=== PATIENT | female | born 1955 | race American Indian/Alaskan Native ===

== ENCOUNTER 2017-04-02 10:37 | Emergency (ER) | payer MEDICAID ==
[2017-04-02 12:05] LABS: Basophils % (Auto) 0.3 % (0.0-1.8); Eosinophils % (Auto) 0.1 % (0.0-4.3); Hematocrit 39.1 % (30.3-42.9); Hemoglobin 12.5 gm/dl (10.1-14.3); Mean Corpuscular HGB Conc 32 % (30-34); Mean Corpuscular Hemoglobin 30 pg (28-32); Mean Corpuscular Volume 94 fl (79-97); Platelet Count 175 K/mm3 (140-440); Red Blood Count 4.15 M/mm3 (3.65-5.03); Red Cell Distribution Width 14.4 % (13.2-15.2); White Blood Count 7.3 K/mm3 (4.5-11.0)
[2017-04-02 12:29] LABS: Anion Gap 19 mmol/L; BUN/Creatinine Ratio 24.28; Blood Urea Nitrogen 17 mg/dL (7-17); Calcium 9.5 mg/dL (8.4-10.2); Carbon Dioxide 22 mmol/L (22-30); Chloride 99.8 mmol/L (98-107); Glucose 114 mg/dL (65-100); Potassium 4.2 mmol/L (3.6-5.0); Sodium 137 mmol/L (137-145)
[2017-04-02 13:30] LABS: Urine Drugs of Abuse Note Disclamer
[2017-04-02 13:53] LABS: Bilirubin,Urine NEG (Negative); Blood,Urine NEG (Negative); Ketones,Urine NEG (Negative); Leukocyte Esterase,Urine LG (Negative); Mucus,Urine FEW /HPF; Nitrite,Urine NEG (Negative); Protein,Urine <15 mg/dL mg/dL (Negative); Urobilinogen,Urine < 2.0 mg/dL (<2.0)
--- NOTE | 2017-04-02 14:13 | Emergency Department Report ---
ED Psych HPI - General Chief Complaint: Psych Stated Complaint: PSYCH EVAL Time Seen by Provider: 04/02/17 13:01 Source: patient Mode of arrival: Ambulatory - History of Present Illness Initial Comments: 61-year-old female brought in by daughter with question of psychosis. According to the patient the daughter states that she is talking to herself. The patient states she does occasionally talk herself but this is her normal type behavior. She denies suicidal ideation and homicidal ideation. She states she has a follow-up appointment with her psychiatrist on Monday. MD Complaint: altered mental status History of same: No Quality: constant Improves With: none Worsens With: none Associated Symptoms: denies other symptoms Treatments Prior to Arrival: none - Related Data Home Medications Medication Instructions Recorded Confirmed Last Taken Amitriptyline [Elavil] 02/20/14 02/20/14 Unknown Baclofen [Lioresal] 02/20/14 02/20/14 Unknown Dextroamphetamine/Amphetamine 02/20/14 02/20/14 Unknown [Adderall XR 20 mg] HYDROcodone/APAP 10-325 [[place] 02/20/14 02/20/14 Unknown 10/325 mg] Previous Rx's Medication Instructions Recorded Last Taken Type Acetaminophen/Codeine [Tylenol 1 tab PO Q6H PRN #15 tab 02/20/14 Unknown Rx /Codeine # 3 tab] Naproxen Sodium (Nf) [Anaprox DS 550 mg PO BID PRN #14 tablet 02/20/14 Unknown Rx TAB] Amoxicillin/K Clav Tab [Augmentin 1 tab PO Q12HR #6 tab 04/02/17 Unknown Rx 875 mg] Allergies Allergy/AdvReac Type Severity Reaction Status Date / Time No Known Allergies Allergy Unverified 02/20/14 18:21 ED Review of Systems ROS: Stated complaint: PSYCH EVAL Other details as noted in HPI Comment: All other systems reviewed and negative Constitutional: denies: chills, fever Eyes: denies: eye pain, eye discharge, vision change ENT: denies: ear pain, throat pain Respiratory: denies: cough, shortness of breath, wheezing Cardiovascular: denies: chest pain, palpitations Endocrine: no symptoms reported Gastrointestinal: denies: abdominal pain, nausea, diarrhea Genitourinary: denies: urgency, dysuria, discharge Musculoskeletal: denies: back pain, joint swelling, arthralgia Skin: denies: rash, lesions Neurological: denies: headache, weakness, paresthesias Psychiatric: depression. denies: anxiety, auditory hallucinations, visual hallucinations, homicidal thoughts, suicidal thoughts Hematological/Lymphatic: denies: easy bleeding, easy bruising ED Past Medical Hx - Past Medical History Hx Psychiatric Treatment: (depression, bipol) Additional medical history: MS, anemia, sickle trait, cervical radiculopathy, DDD, fibromylagia - Family History Family history: no significant - Social History Smoking Status: Never Smoker Substance Use Type: None - Medications Home Medications: Home Medications Medication Instructions Recorded Confirmed Last Taken Type Acetaminophen/Codeine [Tylenol 1 tab PO Q6H PRN #15 tab 02/20/14 Unknown Rx /Codeine # 3 tab] Amitriptyline [Elavil] 02/20/14 02/20/14 Unknown History Baclofen [Lioresal] 02/20/14 02/20/14 Unknown History Dextroamphetamine/Amphetamine 02/20/14 02/20/14 Unknown History [Adderall XR 20 mg] HYDROcodone/APAP 10-325 [[place] 02/20/14 02/20/14 Unknown History 10/325 mg] Naproxen Sodium (Nf) [Anaprox DS 550 mg PO BID PRN #14 tablet 02/20/14 Unknown Rx TAB] Amoxicillin/K Clav Tab [Augmentin 1 tab PO Q12HR #6 tab 04/02/17 Unknown Rx 875 mg] ED Physical Exam - General Limitations: No Limitations General appearance: alert, in no apparent distress - Head Head exam: Present: atraumatic, normocephalic - Eye Eye exam: Present: normal appearance - ENT ENT exam: Present: normal exam, normal orophraynx, mucous membranes moist - Neck Neck exam: Present: normal inspection - Respiratory Respiratory exam: Present: normal lung sounds bilaterally. Absent: respiratory distress - Cardiovascular Cardiovascular Exam: Present: regular rate, normal rhythm. Absent: systolic murmur, diastolic murmur, rubs, gallop - GI/Abdominal GI/Abdominal exam: Present: soft, normal bowel sounds - Extremities Exam Extremities exam: Present: normal inspection - Back Exam Back exam: Present: normal inspection - Neurological Exam Neurological exam: Present: alert, oriented X3 - Psychiatric Psychiatric exam: Present: normal affect, normal mood, agitated - Skin Skin exam: Present: warm, dry, intact, normal color. Absent: rash ED Course Vital Signs 04/02/17 04/02/17 11:40 13:34 Temperature 98.3 F Pulse Rate 98 H Respiratory 20 16 Rate Blood Pressure 125/88 O2 Sat by Pulse 98 100 Oximetry ED Medical Decision Making - Lab Data Result diagrams: 04/02/17 11:45 04/02/17 11:45 Laboratory Results - last 24 hr 04/02/17 04/02/17 04/02/17 11:45 11:45 11:45 WBC 7.3 RBC 4.15 Hgb 12.5 Hct 39.1 MCV 94 MCH 30 MCHC 32 RDW 14.4 Plt Count 175 Lymph % (Auto) 23.8 [place] % (Auto) 6.3 Eos % (Auto) 0.1 Baso % (Auto) 0.3 Lymph # 1.7 [place] # 0.5 Eos # 0.0 Baso # 0.0 Seg Neutrophils % 69.5 Seg Neutrophils # 5.0 Sodium 137 Potassium 4.2 Chloride 99.8 Carbon Dioxide 22 Anion Gap 19 BUN 17 Creatinine 0.7 Estimated GFR > 60 BUN/Creatinine Ratio 24.28 Glucose 114 H Calcium 9.5 Urine Color Urine Turbidity Urine pH Ur Specific [place] Urine Protein Urine Glucose (UA) Urine Ketones Urine Blood Urine Nitrite Urine Bilirubin Urine Urobilinogen Ur Leukocyte Esterase Urine WBC (Auto) Urine RBC (Auto) U Epithel Cells (Auto) Urine Mucus Urine Opiates Screen Ur Barbiturates Screen Ur Phencyclidine Scrn Ur Amphetamines Screen U Benzodiazepines Scrn Urine Cocaine Screen U Marijuana (THC) Screen Plasma/Serum Alcohol < 0.01 04/02/17 04/02/17 13:19 13:19 WBC RBC Hgb Hct MCV MCH MCHC RDW Plt Count Lymph % (Auto) [place] % (Auto) Eos % (Auto) Baso % (Auto) Lymph # [place] # Eos # Baso # Seg Neutrophils % Seg Neutrophils # Sodium Potassium Chloride Carbon Dioxide Anion Gap BUN Creatinine Estimated GFR BUN/Creatinine Ratio Glucose Calcium Urine Color Yellow Urine Turbidity Slightly-cloudy Urine pH 6.0 Ur Specific Vincent 1.012 Urine Protein <15 mg/dl Urine Glucose (UA) Neg Urine Ketones Neg Urine Blood Neg Urine Nitrite Neg Urine Bilirubin Neg Urine Urobilinogen < 2.0 Ur Leukocyte Esterase Lg Urine WBC (Auto) 139.0 H Urine RBC (Auto) 6.0 U Epithel Cells (Auto) 3.0 Urine Mucus Few Urine Opiates Screen Presumptive negative Ur Barbiturates Screen Presumptive negative Ur Phencyclidine Scrn Presumptive negative Ur Amphetamines Screen Presumptive negative U Benzodiazepines Scrn Presumptive negative Urine Cocaine Screen Presumptive negative U Marijuana (THC) Screen Presumptive negative Plasma/Serum Alcohol - Medical Decision Making Patient is a 61-year-old female here after being brought in by family for question of psychiatric evaluation. On my evaluation patient does not appear to be psychotic. She is slightly pressured in her speech but answers all questions directly. She is alert and oriented and understands what you are asking her. She denies suicidality she denies homicidal ideation. She does not meet any criteria for psychiatric hospitalization. Plan to discharge her. She has follow-up with her psychiatrist on Monday. Of note she does have UTI on UA. She denies symptoms but given the number white blood cells a plan to treat. Portions of this chart were dictated with dictation software. There may be dictation errors contained within this note. Critical care attestation.: If time is entered above; I have spent that time in minutes in the direct care of this critically ill patient, excluding procedure time. ED Disposition Clinical Impression: UTI (urinary tract infection) Disposition: - TO HOME OR SELFCARE Is pt being admited?: No Condition: Stable Instructions: Urinary Tract Infection in Women (ED), Bipolar Disorder (ED) Additional Instructions: Follow-up with your psychiatrist on Monday Prescriptions: Amoxicillin/K Clav Tab [Augmentin 875 mg] 1 tab PO Q12HR #6 tab Referrals: PRIMARY CARE, [Primary Care Provider] - 3-5 Days
[2017-04-02 14:43] VITALS: BP 123/69
== END 2017-04-02 14:43 | disposition home or self-care (01) ==
LOC: ED 10:37
DX: N39.0 Urinary tract infection, site not specified (principal); F31.9 Bipolar disorder, unspecified; D64.9 Anemia, unspecified; M50.30 Other cervical disc degeneration, unspecified cervical region; D57.3 Sickle-cell trait
CPT/HCPCS: 36415; 80048; 80307; 81001; 85025; 87086; 87186; 99284; G0480; 80320; 99283

== ENCOUNTER 2017-04-02 17:23 | Emergency (ER) | payer MEDICAID ==
--- NOTE | 2017-04-02 20:08 | Emergency Department Report ---
HPI - General Chief Complaint: Psych Time Seen by Provider: 04/02/17 19:30 - HPI HPI: Patient brought to ED by daughter who stated that patient was acting strange, having hallucinations, delusions, threatened violence. The patient was seen earlier for psychiatric evaluation but was deemed nonacute. Daughter stated once the patient got home her symptoms worsened, to the point where the fear for her safety and the safety of the other people in the house. She was then brought back to ED. ED Past Medical Hx - Past Medical History Hx Psychiatric Treatment: (depression, bipol) Additional medical history: MS, anemia, sickle trait, cervical radiculopathy, DDD, fibromylagia - Family History Family history: hypertension - Social History Smoking Status: Never Smoker Substance Use Type: None - Medications Home Medications: Home Medications Medication Instructions Recorded Confirmed Last Taken Type Acetaminophen/Codeine [Tylenol 1 tab PO Q6H PRN #15 tab 02/20/14 Unknown Rx /Codeine # 3 tab] Amitriptyline [Elavil] 02/20/14 02/20/14 Unknown History Baclofen [Lioresal] 02/20/14 02/20/14 Unknown History Dextroamphetamine/Amphetamine 02/20/14 02/20/14 Unknown History [Adderall XR 20 mg] HYDROcodone/APAP 10-325 [[place] 02/20/14 02/20/14 Unknown History 10/325 mg] Naproxen Sodium (Nf) [Anaprox DS 550 mg PO BID PRN #14 tablet 02/20/14 Unknown Rx TAB] Amoxicillin/K Clav Tab [Augmentin 1 tab PO Q12HR #6 tab 04/02/17 Unknown Rx 875 mg] ED Review of Systems ROS: Stated complaint: PSYCH EVAL Other details as noted in HPI Comment: All other systems reviewed and negative Constitutional: weakness Psychiatric: auditory hallucinations, visual hallucinations Physical Exam - Physical Exam Vital Signs: Vital Signs 04/02/17 04/02/17 17:57 18:45 Temperature 98.4 F Pulse Rate 80 Respiratory 18 Rate Blood Pressure 129/87 O2 Sat by Pulse 100 100 Oximetry Physical Exam: Gen. alert and oriented 3 in no distress Head atraumatic normocephalic Eyes PERR LA EOMI Chest regular rate and rhythm normal S1-S2 lungs clear bilaterally Abdomen soft nondistended Back no point tenderness paravertebral tenderness Neuro no focal deficit. Psych hallucinations visual and auditory, delusions. ED Course Vital Signs 04/02/17 04/02/17 17:57 18:45 Temperature 98.4 F Pulse Rate 80 Respiratory 18 Rate Blood Pressure 129/87 O2 Sat by Pulse 100 100 Oximetry Critical care attestation.: If time is entered above; I have spent that time in minutes in the direct care of this critically ill patient, excluding procedure time. ED Disposition Condition: Stable Referrals: PRIMARY CARE, [Primary Care Provider] - 3-5 Days
[2017-04-02] MEDS ORDERED: ULTRAM PO ONE (22:01)
[2017-04-03 08:18] VITALS: BP 119/71
--- NOTE | 2017-04-03 14:57 | Emergency Department Report ---
Blank Doc - Documentation Documentation: Patient has been evaluated by psychiatry and has been cleared for discharge home. Patient will be discharged at this time.
--- NOTE | 2017-04-03 19:26 | Consultation ---
History of Present Illness - Reason for Consult Consult date: 04/03/17 Reason for consult: Mental Health Evaluation Requesting physician: MELANY CARVALHO - Chief Complaint Chief complaint: "I need my own place" - History of Present Psychiatric Illness Patient brought to ED by daughter who stated that patient was acting strange, having hallucinations, delusions, threatened violence. Today patient is calm and cooperative during assessment. She stated having a "up and down" relationship with her daughter. She denies being violent at their home per the ER note. She stated she may need to get her own place because she want a "peace of mind." Patient has an hx of Bipolar DO and currently have a psychiatrist. She denies SI/HI's, AVH's, and depression. She denies recreational drug use and excessive alcohol consumption (etoh). Medications and Allergies Allergies Allergy/AdvReac Type Severity Reaction Status Date / Time No Known Allergies Allergy Unverified 02/20/14 18:21 Home Medications Medication Instructions Recorded Confirmed Last Taken Type Baclofen [Lioresal] 10 mg PO BID 02/20/14 04/03/17 03/29/17 08:00 History HYDROcodone/APAP 10-325 [[place] 10 mg PO Q4H 02/20/14 04/03/17 03/30/17 08:00 History 10/325 mg] Naproxen Sodium (Nf) [Anaprox DS 550 mg PO BID PRN #14 tablet 02/20/14 04/03/17 03/30/17 08:00 Rx TAB] Oxycodone HCl [Oxycontin] 30 mg PO DAILY PRN 04/03/17 04/03/17 03/30/17 08:00 History Past psychiatric history - Past Medical History Past Medical History: hypertension Past Surgical History: No surgical history - past Psychiatric treatment and history Psych: Bipolar psychiatric treatment history: Patient stated that she has psy. She denies a fam psy hx. - Social History Social history: lives with family Mental Status Exam - Vital signs Last Vital Signs Temp 98.4 F 04/03/17 08:17 Pulse 74 04/03/17 08:17 Resp 16 04/03/17 08:17 BP 119/71 04/03/17 08:17 Pulse Ox 100 04/03/17 08:17 - Exam Narrative exam: ROS: (-) psychosis/manic, (-) depression MSE: Appearance: calm, cooperative Behavior: regular eye contact Speech: regular rate and tone Mood: "I am fine" Affect: congruent to mood Thought Process: linear Thought Content: denies SI/HI's and AVH's Motor Activity: ambulatory Cognition: A/Ox 3 Insight: fair Judgment: fair Results All other labs normal. Assessment and Plan Assessment and plan: Impression: Historical Dx: Bipolar DO. Today patient is calm and cooperative during assessment. Recommendation/Plan: Patient does not meet criteria for 1013. She can follow-up with outpatient psy services. She has an psychiatrist.
== END 2017-04-03 15:39 | disposition home or self-care (01) ==
LOC: ED 17:23
DX: R45.6 Violent behavior (principal); F22 Delusional disorders; F31.9 Bipolar disorder, unspecified; D64.9 Anemia, unspecified
CPT/HCPCS: 99283

== ENCOUNTER 2017-05-10 11:49 | Emergency (ER) | payer MEDICAID ==
[2017-05-10 12:17] VITALS: BP 141/69
[2017-05-10] MEDS ORDERED: NACL 0.9% 1000 ML 1,000 ML IV ONE (16:52)
[2017-05-10] MEDS ORDERED: MORPHINE IV ONE (16:53)
[2017-05-10 17:53] LABS: Basophils % (Auto) 0.3 % (0.0-1.8); Hematocrit 37.7 % (30.3-42.9); Hemoglobin 12.3 gm/dl (10.1-14.3); Mean Corpuscular HGB Conc 33 % (30-34); Mean Corpuscular Hemoglobin 31 pg (28-32); Mean Corpuscular Volume 95 fl (79-97); Platelet Count 189 K/mm3 (140-440); Red Blood Count 3.96 M/mm3 (3.65-5.03); Red Cell Distribution Width 14.5 % (13.2-15.2)
[2017-05-10 18:34] LABS: Alanine Aminotransferase 14 units/L (7-56); Albumin 4.4 g/dL (3.9-5); Albumin/Globulin Ratio 1.5 %; Alkaline Phosphatase 54 units/L (35-129); Anion Gap 13 mmol/L; BUN/Creatinine Ratio 22.85; Blood Urea Nitrogen 16 mg/dL (7-17); Calcium 9.7 mg/dL (8.4-10.2); Carbon Dioxide 31 mmol/L (22-30); Glucose 127 mg/dL (65-100); Potassium 4.4 mmol/L (3.6-5.0); Sodium 142 mmol/L (137-145); Total Protein 7.4 g/dL (6.3-8.2)
--- NOTE | 2017-05-10 18:44 | Emergency Department Report ---
ED Abdominal Pain HPI - General Chief Complaint: Skin/Abscess/Foreign Body Stated Complaint: ABD/BACK PAIN Time Seen by Provider: 05/10/17 16:34 Source: patient Mode of arrival: Ambulatory Limitations: No Limitations - History of Present Illness Initial Comments: 61-year-old female past medical history bipolar disorder, MS, depression, chronic pain on MS Contin presents with complaint of 10 years of abdominal pain with associated growing abdominal mass. On exam patient is awake alert and oriented 3 cooperative but exhibiting pressured speech. She states that this is her baseline. Patient states that she came to the ED to get a second opinion on an anterior abdominal mass beginning to cause her some discomfort. Patient states she has baseball sized mass on her left anterior abdomen. States she went to her neurologist and referred her to the ER for evaluation. Denies fevers chills nausea vomiting dysuria hematuria. States that pain radiates from the left anterior aspect of her abdomen around her left flank. MD Complaint: abdominal pain Onset/Timin -: days(s) Location: LUQ Radiation: L flank Migration to: L flank Severity: moderate Severity scale (0 -10): 5 Quality: aching Consistency: constant Improves With: medication (patient takes MS Contin daily) - Related Data Home Medications Medication Instructions Recorded Confirmed Last Taken Baclofen [Lioresal] 10 mg PO BID 02/20/14 04/03/17 03/29/17 08:00 HYDROcodone/APAP 10-325 [[place] 10 mg PO Q4H 02/20/14 04/03/17 03/30/17 08:00 10/325 mg] Oxycodone HCl [Oxycontin] 30 mg PO DAILY PRN 04/03/17 04/03/17 03/30/17 08:00 Previous Rx's Medication Instructions Recorded Last Taken Type Naproxen Sodium (Nf) [Anaprox DS 550 mg PO BID PRN #14 tablet 02/20/14 03/30/17 08:00 Rx TAB] Allergies Allergy/AdvReac Type Severity Reaction Status Date / Time No Known Allergies Allergy Unverified 02/20/14 18:21 ED Review of Systems ROS: Stated complaint: ABD/BACK PAIN Other details as noted in HPI Constitutional: denies: chills, fever Eyes: denies: eye pain, eye discharge, vision change ENT: denies: ear pain, throat pain Respiratory: denies: cough, shortness of breath, wheezing Cardiovascular: denies: chest pain, palpitations Endocrine: no symptoms reported Gastrointestinal: as per HPI, abdominal pain (patient states she has had abdominal mass for approximately 10 years). denies: nausea, diarrhea Genitourinary: denies: urgency, dysuria, discharge Musculoskeletal: denies: back pain, joint swelling, arthralgia Skin: denies: rash, lesions Neurological: denies: headache, weakness, paresthesias Psychiatric: denies: anxiety, depression Hematological/Lymphatic: denies: easy bleeding, easy bruising ED Past Medical Hx - Past Medical History Hx Psychiatric Treatment: (depression, bipol) Additional medical history: MS, anemia, sickle trait, cervical radiculopathy, DDD, fibromylagia - Social History Smoking Status: Current Every Day Smoker Substance Use Type: None - Medications Home Medications: Home Medications Medication Instructions Recorded Confirmed Last Taken Type Baclofen [Lioresal] 10 mg PO BID 02/20/14 04/03/17 03/29/17 08:00 History HYDROcodone/APAP 10-325 [[place] 10 mg PO Q4H 02/20/14 04/03/17 03/30/17 08:00 History 10/325 mg] Naproxen Sodium (Nf) [Anaprox DS 550 mg PO BID PRN #14 tablet 02/20/14 04/03/17 03/30/17 08:00 Rx TAB] Oxycodone HCl [Oxycontin] 30 mg PO DAILY PRN 04/03/17 04/03/17 03/30/17 08:00 History ED Physical Exam - General Limitations: No Limitations General appearance: alert, in no apparent distress - Head Head exam: Present: atraumatic, normocephalic - Eye Eye exam: Present: normal appearance, PERRL, EOMI - ENT ENT exam: Present: mucous membranes moist - Neck Neck exam: Present: normal inspection, full ROM - Respiratory Respiratory exam: Present: normal lung sounds bilaterally. Absent: respiratory distress - Cardiovascular Cardiovascular Exam: Present: regular rate, normal rhythm. Absent: systolic murmur, diastolic murmur, rubs, gallop - GI/Abdominal GI/Abdominal exam: Present: soft (large baseball-sized mass left anterior abdomen and left upper quadrant. Left lower right lower and right upper quadrants are nontender with no masses, bowel sounds positive all quadrants), normal bowel sounds, mass (mass in left upper quadrant) - Extremities Exam Extremities exam: Present: normal inspection - Back Exam Back exam: Present: normal inspection - Neurological Exam Neurological exam: Present: alert, oriented X3, CN II-XII intact, normal gait - Psychiatric Psychiatric exam: Present: normal affect, normal mood - Skin Skin exam: Present: warm, dry, intact, normal color. Absent: rash ED Course Vital Signs 05/10/17 12:12 Temperature 98 F Pulse Rate 107 H Blood Pressure 141/69 O2 Sat by Pulse 97 Oximetry ED Medical Decision Making - Lab Data Result diagrams: 05/10/17 17:15 05/10/17 17:15 - Medical Decision Making A/P: Abdominal mass, abdominal lipoma 1-CT scan shows abdominal lipoma with other incidental findings including renal cysts and pulmonary nodules 2-case discussed with Dr. Johnson before discharge 3-patient is already taking large quantities of opiates on a daily basis for chronic pain I will not prescribe her more medication at this time she can follow up with her pain management doctor 4- patient referred to general surgery and dermatology for removal of her lipoma on an outpatient basis. Critical care attestation.: If time is entered above; I have spent that time in minutes in the direct care of this critically ill patient, excluding procedure time. ED Disposition Clinical Impression: Lipoma of abdominal wall Disposition: DC-01 TO HOME OR SELFCARE Is pt being admited?: No Does the pt Need Aspirin: No Condition: Stable Instructions: Lipoma (ED), Abdominal Pain (ED) Additional Instructions: [email or web address] Referrals: [facility] [Provider Group] - 3-5 Days JENNYFER BLISS MD [Staff Physician] - 3-5 Days Forms: Work/School Release Form(ED)
[2017-05-10 18:45] LABS: Bilirubin,Direct < 0.2 mg/dL (0-0.2); Bilirubin,Indirect 0.1 mg/dL
[2017-05-10] MEDS ORDERED: NACL ONE (19:04)
--- NOTE | 2017-05-10 21:10 | Cat Scan Report ---
FINAL REPORT EXAM: CT ABDOMEN PELVIS W CON HISTORY: anterior abominal mas size of a baseball TECHNIQUE: Dynamic helical CT scan through the abdomen and pelvis after ingestion of oral contrast and during and again after intravenous injection of iodinated contrast. Images are reconstructed in the sagittal and coronal planes. PRIORS: None. FINDINGS: Images through the lung bases show 4 millimeter right middle lobe pleural-based nodule. There is mild bibasilar subsegmental atelectasis. There is an upper abdominal wall lipoma slightly to the left of midline and 7 cm inferior to the xiphoid. It measures 2.1 x 5.9 x 4.0 Cm. There is a 6 mm cyst in the posterior segment of the right lobe of the liver. The gallbladder, pancreas, spleen and adrenal glands appear normal. The right kidney appears normal. There is a 9 mm cyst in the upper pole the left kidney. The pelvic organs appear grossly normal. There is a small amount of free pelvic fluid likely physiologic in nature The stomach appears grossly within normal limits. There is diffuse gas distension of the transverse colon and rectum. There is a relatively large amount of stool in right colon. Oral contrast progressed to the distal right colon. Small bowel is nondilated. A normal-appearing appendix is identified. The abdominal aorta has a normal diameter. The bones are unremarkable for age. IMPRESSION: 1. Anterior abdominal wall lipoma as described above. 2. 4 mm right middle lobe pleural-based nodule. Please see recommendations per Fleischner Society below. 3. Findings suggest constipation or possibly a mild colonic ileus. Pulmonary nodule follow-up (Fleischner Society recommendations): If the patient is low risk (no significant smoking history, no history of malignancy and a normal immune system): \T\gt; 4-[address] chest follow-up in 12 months. If there is no change at that time, no additional follow up is necessary. If the patient is high risk: \T\gt; 4-[address] chest follow-up in 6-12 months then at 18-24 months if no change.
== END 2017-05-10 22:15 | disposition home or self-care (01) ==
LOC: ED 11:49
DX: D17.39 Benign lipomatous neoplasm of skin and subcutaneous tissue of other sites (principal); F17.200 Nicotine dependence, unspecified, uncomplicated
CPT/HCPCS: 36415; 74177; 80048; 80074; 85025; 85379; 96361; 96374; 99284; J2270; J7030; Q9967

== ENCOUNTER 2017-06-23 10:57 | Day surgery (SDC) | payer MEDICAID ==
[2017-06-23] MEDS ORDERED: PEPCID IV NR (12:50)
[2017-06-23] MEDS ORDERED: ZOFRAN IV PRN (12:51)
[2017-06-23] MEDS ORDERED: PERCOCET 5/325 PO PRN ×2 (12:51→16:44)
[2017-06-23] MEDS ORDERED: DILAUDID IV PRN (12:51)
--- NOTE | 2017-06-23 12:52 | Anesthesia Day of Surgery ---
Anesthesia Day of Surgery - Day of Surgery Patient Examined: Yes Patient is NPO: Yes
--- NOTE | 2017-06-23 12:53 | Anesthesia Consultation ---
Anesthesia Consult and Med Hx Date of service: 06/23/17 - Airway Anesthetic Teeth Evaluation: Edentulous ROM Head & Neck: Adequate Mental/Hyoid Distance: Adequate Mallampati Class: Class II Intubation Access Assessment: Probably Good - Pulmonary Exam CTA: Yes - Cardiac Exam Cardiac Exam: RRR - Pre-Operative Health Status ASA Pre-Surgery Classification: ASA3 Proposed Anesthetic Plan: General - Pulmonary Hx Smoking: Yes (1 PACK PER 2 WEEKS, quit 1 week ago) Hx Asthma: No COPD: No Hx Sleep Apnea: No (DEMARCO PRE SCREEN LOW RISK) - Cardiovascular System Hx Hypertension: No - Central Nervous System Hx Neuromuscular Disorder: Yes (MULTIPLE SCLEROSIS) Hx Back Pain: Yes (CHRONIC NECK AND BACK PAIN, HERNIATED LOWER BACK DISC) Hx Psychiatric Problems: Yes (FIBROMYALGIA, BIPOLAR, DEPRESSION) - Endocrine Hx Renal Disease: No (LIVER AND KIDNEY CYST) Hx Insulin Dependent Diabetes: No Hx Thyroid Disease: No - Hematic Hx Anemia: Yes Hx Sickle Cell Disease: No (SC TRAIT ONLY) - Other Systems Hx Cancer: No Hx Obesity: No
[2017-06-23] MEDS ORDERED: VERSED IV NR (13:00)
[2017-06-23] MEDS: NACL 0.9% 1000 ML 1,000 ML IV SCH ×2 (13:10→15:50)
[2017-06-23 13:23] LABS: Hematocrit 38.1 % (30.3-42.9); Hemoglobin 12.2 gm/dl (10.1-14.3)
[2017-06-23] MEDS ORDERED: ANCEF IM ONE (13:25)
[2017-06-23] MEDS ORDERED: ANCEF/NS 1 GM/50 ML 1 GM/50 ML BAG IV NR (13:45)
[2017-06-23] MEDS ORDERED: MARCAINE 0.5% INFILTRATI ONE (13:59)
[2017-06-23] MEDS ORDERED: NACL 0.9% IR ONE (13:59)
[2017-06-23] MEDS ORDERED: XYLOCAINE 1%/ EPI 1:100,000 INFILTRATI ONE ×2 (13:59→14:08)
[2017-06-23] MEDS ORDERED: VERSED ONE (14:04)
[2017-06-23] MEDS ORDERED: DIPRIVAN 10 MG/ML IV ONE ×2 (14:04→14:29)
[2017-06-23] MEDS ORDERED: SUBLIMAZE ONE (14:04)
[2017-06-23] MEDS ORDERED: MARCAINE 0.5% 30 ML INFILTRATI ONE (14:08)
[2017-06-23 15:46] VITALS: BP 116/63
--- NOTE | 2017-06-23 17:27 | Post Anesthesia Evaluation ---
- Post Anesthesia Evaluation Patient Participated: Yes Airway Patent: Yes Stable Respiratory Function: Yes Nausea/Vomiting: No Temp > 96.8F: Yes Pain Manageable: Yes Adequeate Hydration: Yes Anesthesia Complications: No Block Receding Appropriately: Not Applicable Patient on Ventilator: No
--- NOTE | 2017-06-23 19:58 | Operative Report ---
PREOPERATIVE DIAGNOSES: Mass epigastric hernia with lipoma. POSTOPERATIVE DIAGNOSES: Mass epigastric hernia with lipoma. ANESTHESIA: General. BLOOD LOSS: Minimal. SURGERY: Exploration of the epigastric area with removal of lipoma and closure of a hernia in the epigastric area. The hernial defect is about 1 x 1 cm. There is nothing in it other than the lipoma. I was able to close the fascial defect with #1 Vicryl, [id number], I put about 4 stitches. DESCRIPTION OF PROCEDURE: With the patient in supine position, prepped and draped in usual fashion. I made a transverse incision over that mass that is exactly in the mid upper epigastrium and off to the left side, deep subcutaneous tissue. I was able to get hold of the mass and slowly dissecting it, apparently it goes into the abdominal cavity. I was able to dissect it just at that point then the fascial defect was closed with a few stitches of 0 Vicryl [id number] and the subcutaneous tissue with 3-0 Vicryl and skin with 4-0 Vicryl for the intracuticular layer and bandages. The patient was then transferred to the recovery room in good condition. JOB# [id number] REJI/ARNOLDO
--- NOTE | 2017-06-23 23:00 | Discharge Summary ---
FINAL DIAGNOSIS: Epigastric hernia with a lipoma. HISTORY OF PRESENT ILLNESS: This patient was seen in my office about one month ago because of a mass that she has been having over the last few years, increasing in size with some tenderness. She had no nausea, no vomiting. PHYSICAL EXAMINATION: GENERAL: Showed a thin, slim black female. She is in no distress. HEAD AND NECK: Supple. CHEST: Essentially clear. HEART: Sound normal. ABDOMEN: Showed a mass that is a good 8 x 8 x 5 cm located in the mid upper epigastrium more to the left side. EXTREMITIES: Showed no significant edema. IMPRESSION: Epigastric mass. This needs to be addressed surgically. Would do this under general anesthesia. This was done and she was found to have a hernia. Postop, she did well. She was discharged home the same day to be seen in my office in 1 week. She was given prescription for [place] 5/300 one every 4-6h. p.r.n. for pain. JOB# [id number] REJI/ARNOLDO
== END 2017-06-23 10:58 | disposition home or self-care (01) ==
LOC: OR 10:57
PROVIDERS: ATTEND Surgery
DX: D17.79 Benign lipomatous neoplasm of other sites (principal); F17.210 Nicotine dependence, cigarettes, uncomplicated; G89.29 Other chronic pain; G35 Multiple sclerosis; F31.89 Other bipolar disorder
CPT/HCPCS: 22901; 36415; 85014; 85018; 88304; J0690; J2250; J2704; J3010; J7030; 88307

== ENCOUNTER 2018-04-26 08:00 | Emergency (ER) | payer MEDICAID ==
[2018-04-26 08:20] VITALS: BP 182/83
--- NOTE | 2018-04-26 10:14 | Emergency Department Report ---
ED General Adult HPI - General Chief complaint: Pain General Stated complaint: PAIN ALL OVER Time Seen by Provider: 04/26/18 09:38 Source: patient Mode of arrival: Ambulatory Limitations: No Limitations - History of Present Illness Initial comments: Patient presents to the ED for a complaint of diffuse body pains. The Patient states she has a H/O MS and is currently out of her Lortab. Patient denies any dysuria, chest pain, normal pain, headache. Severity scale (0 -10): 6 Improves with: none Worsens with: none Associated Symptoms: denies other symptoms Treatments Prior to Arrival: none - Related Data Home Medications Medication Instructions Recorded Confirmed Last Taken ALPRAZolam [Xanax TAB] 2 mg PO TID 06/19/17 10/16/17 06/22/17 Previous Rx's Medication Instructions Recorded Last Taken Type Zolpidem [Ambien] 5 mg PO QHS PRN #20 tablet 10/23/17 Unknown Rx HYDROcodone/ACETAMINOPHEN [[place] 1 each PO Q6HR PRN #15 tablet 04/26/18 Unknown Rx 10-325 Tablet] Allergies Allergy/AdvReac Type Severity Reaction Status Date / Time No Known Allergies Allergy Verified 10/15/17 12:29 ED Review of Systems ROS: Stated complaint: PAIN ALL OVER Other details as noted in HPI Comment: All other systems reviewed and negative Constitutional: denies: chills, fever Eyes: denies: eye pain, eye discharge, vision change ENT: denies: ear pain, throat pain Respiratory: denies: cough, shortness of breath, wheezing Cardiovascular: denies: chest pain, palpitations Endocrine: no symptoms reported Gastrointestinal: denies: abdominal pain, nausea, diarrhea Genitourinary: denies: urgency, dysuria, discharge Musculoskeletal: denies: back pain, joint swelling, arthralgia Skin: denies: rash, lesions Neurological: denies: headache, weakness, paresthesias Psychiatric: denies: anxiety, depression Hematological/Lymphatic: denies: easy bleeding, easy bruising ED Past Medical Hx - Past Medical History Previous Medical History?: Yes Hx Hypertension: Yes Hx Renal Disease: No (LIVER AND KIDNEY CYST) Hx Sickle Cell Disease: No (SC TRAIT ONLY) Hx Arthritis: Yes Hx Psychiatric Treatment: (depression, bipol) Hx Asthma: No Hx COPD: No Hx HIV: No Additional medical history: MS, anemia, sickle trait, cervical radiculopathy, DDD, fibromylagia - Surgical History Past Surgical History?: No - Social History Smoking Status: Current Every Day Smoker Substance Use Type: None - Medications Home Medications: Home Medications Medication Instructions Recorded Confirmed Last Taken Type ALPRAZolam [Xanax TAB] 2 mg PO TID 06/19/17 10/16/17 06/22/17 History Zolpidem [Ambien] 5 mg PO QHS PRN #20 tablet 10/23/17 Unknown Rx HYDROcodone/ACETAMINOPHEN [[place] 1 each PO Q6HR PRN #15 tablet 04/26/18 Unknown Rx 10-325 Tablet] ED Physical Exam - General Limitations: No Limitations General appearance: alert, in no apparent distress - Head Head exam: Present: atraumatic, normocephalic - Eye Eye exam: Present: normal appearance - ENT ENT exam: Present: mucous membranes moist - Neck Neck exam: Present: normal inspection - Respiratory Respiratory exam: Present: normal lung sounds bilaterally. Absent: respiratory distress - Cardiovascular Cardiovascular Exam: Present: regular rate, normal rhythm. Absent: systolic murmur, diastolic murmur, rubs, gallop - GI/Abdominal GI/Abdominal exam: Present: soft, normal bowel sounds - Extremities Exam Extremities exam: Present: normal inspection - Back Exam Back exam: Present: normal inspection - Neurological Exam Neurological exam: Present: alert, oriented X3, CN II-XII intact. Absent: motor sensory deficit - Psychiatric Psychiatric exam: Present: normal affect, normal mood - Skin Skin exam: Present: warm, dry, intact, normal color. Absent: rash ED Course Vital Signs 04/26/18 08:16 Temperature 98.8 F Pulse Rate 70 Blood Pressure 182/83 ED Medical Decision Making - Medical Decision Making Discussed results with patient Critical care attestation.: If time is entered above; I have spent that time in minutes in the direct care of this critically ill patient, excluding procedure time. ED Disposition Clinical Impression: Pain, Multiple sclerosis Disposition: - TO HOME OR SELFCARE Is pt being admited?: No Does the pt Need Aspirin: No Condition: Stable Instructions: Arthralgia (ED) Additional Instructions: return if worse Prescriptions: HYDROcodone/ACETAMINOPHEN [[place] 10-325 Tablet] 1 each PO Q6HR PRN #15 tablet PRN Reason: pain Referrals: PRIMARY CARE, [Primary Care Provider] - 3-5 Days [facility] [Outside] - 3-5 Days Time of Disposition: 10:13
== END 2018-04-26 10:18 | disposition home or self-care (01) ==
LOC: ED 08:00
DX: G35 Multiple sclerosis (principal); I10 Essential (primary) hypertension; M19.90 Unspecified osteoarthritis, unspecified site; F31.9 Bipolar disorder, unspecified; F32.9 Major depressive disorder, single episode, unspecified; F17.200 Nicotine dependence, unspecified, uncomplicated
CPT/HCPCS: 99282

== ENCOUNTER 2018-04-27 00:49 | Emergency (ER) | payer MEDICAID ==
[2018-04-27 03:05] VITALS: BP 170/72
== END 2018-04-27 03:06 | disposition left against medical advice (07) ==
LOC: ED 00:49
DX: M79.1 Myalgia (principal); M19.90 Unspecified osteoarthritis, unspecified site; I10 Essential (primary) hypertension; F31.9 Bipolar disorder, unspecified; D64.9 Anemia, unspecified; F17.200 Nicotine dependence, unspecified, uncomplicated; F12.90 Cannabis use, unspecified, uncomplicated; Z53.21 Procedure and treatment not carried out due to patient leaving prior to being seen by health care provider

== ENCOUNTER 2018-04-28 04:12 | Emergency (ER) | payer MEDICAID ==
[2018-04-28 04:26] VITALS: BP 161/104
[2018-04-28 06:33] LABS: Basophils % (Auto) 0.3 % (0.0-1.8); Eosinophils % (Auto) 0.3 % (0.0-4.3); Hematocrit 42.3 % (30.3-42.9); Hemoglobin 13.8 gm/dl (10.1-14.3); Lymphocytes # (Auto) 2.8 K/mm3 (1.2-5.4); Mean Corpuscular HGB Conc 33 % (30-34); Mean Corpuscular Hemoglobin 32 pg (28-32); Mean Corpuscular Volume 98 fl (79-97); Monocytes # (Auto) 0.6 K/mm3 (0.0-0.8); Monocytes % (Auto) 7.5 % (0.0-7.3); Platelet Count 233 K/mm3 (140-440); Red Blood Count 4.32 M/mm3 (3.65-5.03); Red Cell Distribution Width 15.3 % (13.2-15.2)
[2018-04-28 06:56] LABS: BUN/Creatinine Ratio 26; Blood Urea Nitrogen 18 mg/dL (7-17); Calcium 9.5 mg/dL (8.4-10.2); Hemolysis Index 15
[2018-04-28 07:45] LABS: Bacteria,Urine 1+ /HPF (Negative); Bilirubin,Urine NEG (Negative); Blood,Urine NEG (Negative); Color,Urine Amber (Yellow); Mucus,Urine FEW /HPF; Protein,Urine <15 mg/dL mg/dL (Negative); Urobilinogen,Urine < 2.0 mg/dL (<2.0)
== END 2018-04-28 10:31 ==
LOC: ED 04:12
DX: R52 Pain, unspecified (principal); Z53.21 Procedure and treatment not carried out due to patient leaving prior to being seen by health care provider
CPT/HCPCS: 36415; 80048; 81001; 85025